=== PATIENT | female | born 1970 | race Caucasian/White ===

== ENCOUNTER → 2020-08-13 | Outpatient (CLI) | payer OTHER | LOC: WCC 13:03 | PROVIDERS: ATTEND Podiatrist | DX: E11.621 Type 2 diabetes mellitus with foot ulcer (principal); E11.65 Type 2 diabetes mellitus with hyperglycemia; L97.401 Non-pressure chronic ulcer of unspecified heel and midfoot limited to breakdown of skin; R60.0 Localized edema; G90.09 Other idiopathic peripheral autonomic neuropathy; M14.672 Charcot's joint, left ankle and foot; M21.6X9 Other acquired deformities of unspecified foot; M13.80 Other specified arthritis, unspecified site; I10 Essential (primary) hypertension; F32.9 Major depressive disorder, single episode, unspecified; G47.00 Insomnia, unspecified ==

== ENCOUNTER → 2020-08-20 | Outpatient (CLI) | payer OTHER ==
[~2020-08-20] MED LIST: LIDOCAINE VISC 2% SOLN 15 ML UDC ONE; MUPIROCIN 2% OINT 22 GM TUBE ONE
[2020-08-20 17:24] LABS: BASOPHILS % 0.6 % (0.0-1.0); EOSINOPHILS # (AUTO) 0.3 (0.0-0.4); EOSINOPHILS % 3.6 % (0.0-6.0); HEMATOCRIT 25.8 % (34.2-44.1); LYMPHOCYTES # (AUTO) 2.3 (1.0-3.2); LYMPHOCYTES % 32.2 % (18.0-39.1); MEAN CORPUSCULAR HEMOGLOBIN 18.7 pg (28-32); MEAN CORPUSCULAR HGB CONC 26.4 g/dL (31-35); MEAN CORPUSCULAR VOLUME 71.1 fL (81-99); MONOCYTES # (AUTO) 0.4 (0.2-0.8); MONOCYTES % 6.1 % (4.4-11.3); NEUTROPHILS % 57.2 % (38.7-80.0); PLATELET COUNT 437 x10e3/uL (140-360); RED BLOOD COUNT 3.63 x10e6/uL (3.6-5.1); RED CELL DISTRIBUTION WIDTH 15.1 % (11.7-14.4)
[2020-08-20 17:27] LABS: HEMOGLOBIN 6.8 g/dL (12.0-16.0)
[2020-08-20 17:46] LABS: ALBUMIN 4.1 g/dL (3.5-5.0); ALBUMIN/GLOBULIN RATIO 1.6 (0.8-2.0); ANION GAP 13.3 mmol/L (8-16); CALCIUM 9.8 mg/dL (8.4-10.2); CREATININE, SERUM 0.74 mg/dL (0.57-1.11); POTASSIUM 3.3 mmol/L (3.5-5.1)
== END ==
LOC: WCC 14:19
PROVIDERS: ATTEND Podiatrist
DX: E11.621 Type 2 diabetes mellitus with foot ulcer (principal); E11.65 Type 2 diabetes mellitus with hyperglycemia; L97.401 Non-pressure chronic ulcer of unspecified heel and midfoot limited to breakdown of skin; R60.0 Localized edema; G90.09 Other idiopathic peripheral autonomic neuropathy; I10 Essential (primary) hypertension; M14.672 Charcot's joint, left ankle and foot; M14.671 Charcot's joint, right ankle and foot; M21.6X9 Other acquired deformities of unspecified foot; M13.80 Other specified arthritis, unspecified site; G47.00 Insomnia, unspecified; F32.9 Major depressive disorder, single episode, unspecified
CPT/HCPCS: 36415; 80053; 82652; 82948; 83036; 84134; 85025; 85651; 86140

== ENCOUNTER → 2020-09-03 | Outpatient (CLI) | payer OTHER ==
[2020-09-03 17:06] LABS: BASOPHILS # (AUTO) 0.1 (0.0-0.1); BASOPHILS % 0.7 % (0.0-1.0); EOSINOPHILS # (AUTO) 0.1 (0.0-0.4); EOSINOPHILS % 1.4 % (0.0-6.0); HEMATOCRIT 29.8 % (34.2-44.1); HEMOGLOBIN 8.2 g/dL (12.0-16.0); LYMPHOCYTES # (AUTO) 1.7 (1.0-3.2); LYMPHOCYTES % 18.9 % (18.0-39.1); MEAN CORPUSCULAR HEMOGLOBIN 20.5 pg (28-32); MEAN CORPUSCULAR HGB CONC 27.5 g/dL (31-35); MEAN CORPUSCULAR VOLUME 74.5 fL (81-99); MONOCYTES # (AUTO) 0.6 (0.2-0.8); MONOCYTES % 7.3 % (4.4-11.3); NEUTROPHILS # (AUTO) 6.3 (2.1-6.9); NEUTROPHILS % 71.4 % (38.7-80.0); PLATELET COUNT 338 x10e3/uL (140-360); RED CELL DISTRIBUTION WIDTH 19.1 % (11.7-14.4)
== END ==
LOC: WCC 15:34
PROVIDERS: ATTEND Podiatrist
DX: E11.621 Type 2 diabetes mellitus with foot ulcer (principal); E11.65 Type 2 diabetes mellitus with hyperglycemia; L97.402 Non-pressure chronic ulcer of unspecified heel and midfoot with fat layer exposed; G90.09 Other idiopathic peripheral autonomic neuropathy; R60.0 Localized edema; I10 Essential (primary) hypertension; M13.80 Other specified arthritis, unspecified site; M21.6X9 Other acquired deformities of unspecified foot; M14.672 Charcot's joint, left ankle and foot; M14.671 Charcot's joint, right ankle and foot; F32.9 Major depressive disorder, single episode, unspecified; G47.33 Obstructive sleep apnea (adult) (pediatric)
CPT/HCPCS: 36415; 85025

== ENCOUNTER → 2020-09-10 | Outpatient (CLI) | payer OTHER ==
[~2020-09-10] MED LIST changes: +GADOBENATE DIMEGLUMINE 1 ML IV ONE; -LIDOCAINE VISC 2% SOLN 15 ML UDC ONE; -MUPIROCIN 2% OINT 22 GM TUBE ONE
[2020-09-11 10:58] LABS: EST GLOMERULAR FILTRATION RATE > 60 ML/MIN (60-)
== END ==
LOC: MRI 12:52
PROVIDERS: ATTEND Podiatrist
DX: E11.621 Type 2 diabetes mellitus with foot ulcer (principal); L97.401 Non-pressure chronic ulcer of unspecified heel and midfoot limited to breakdown of skin
CPT/HCPCS: 36415; 82565

== ENCOUNTER → 2020-09-10 | Outpatient (CLI) | payer OTHER | LOC: WCC 15:47 | PROVIDERS: ATTEND Podiatrist | DX: E11.621 Type 2 diabetes mellitus with foot ulcer (principal); E11.65 Type 2 diabetes mellitus with hyperglycemia; L97.402 Non-pressure chronic ulcer of unspecified heel and midfoot with fat layer exposed; R60.0 Localized edema; G90.09 Other idiopathic peripheral autonomic neuropathy; I10 Essential (primary) hypertension; M14.671 Charcot's joint, right ankle and foot; M14.672 Charcot's joint, left ankle and foot; M21.6X9 Other acquired deformities of unspecified foot; G47.00 Insomnia, unspecified; F32.9 Major depressive disorder, single episode, unspecified; M13.80 Other specified arthritis, unspecified site ==

== ENCOUNTER → 2020-09-17 | Outpatient (CLI) | payer OTHER ==
[~2020-09-17] MED LIST changes: -GADOBENATE DIMEGLUMINE 1 ML IV ONE; +LIDOCAINE/PRILOCAINE 2.5-2.5% KIT ONE
== END ==
LOC: WCC 15:05
PROVIDERS: ATTEND Podiatrist
DX: E11.621 Type 2 diabetes mellitus with foot ulcer (principal); E11.65 Type 2 diabetes mellitus with hyperglycemia; L97.402 Non-pressure chronic ulcer of unspecified heel and midfoot with fat layer exposed; G90.09 Other idiopathic peripheral autonomic neuropathy; R60.0 Localized edema; I10 Essential (primary) hypertension; M14.671 Charcot's joint, right ankle and foot; M14.672 Charcot's joint, left ankle and foot; M21.6X9 Other acquired deformities of unspecified foot; M13.80 Other specified arthritis, unspecified site; F32.9 Major depressive disorder, single episode, unspecified; G47.00 Insomnia, unspecified
CPT/HCPCS: 36415; 82948; 88112; 88305

== ENCOUNTER → 2020-09-24 | Outpatient (CLI) | payer OTHER | LOC: WCC 15:53 | PROVIDERS: ATTEND Podiatrist | DX: E11.621 Type 2 diabetes mellitus with foot ulcer (principal); E11.65 Type 2 diabetes mellitus with hyperglycemia; L97.402 Non-pressure chronic ulcer of unspecified heel and midfoot with fat layer exposed; L03.116 Cellulitis of left lower limb; G90.09 Other idiopathic peripheral autonomic neuropathy; R60.0 Localized edema; I10 Essential (primary) hypertension; M14.671 Charcot's joint, right ankle and foot; M14.672 Charcot's joint, left ankle and foot; M21.6X9 Other acquired deformities of unspecified foot; G47.00 Insomnia, unspecified; M13.80 Other specified arthritis, unspecified site; F32.9 Major depressive disorder, single episode, unspecified ==